=== PATIENT | male | born 1935 | race Caucasian/White ===

== ENCOUNTER 2019-06-03 14:47 | Observation (INO) | payer MEDICARE, OTHER ==
[~2019-06-03] VITALS: Ht 185.4 cm; Wt 81.5 kg
[2019-06-03 15:48] LABS: BASO # 0.1 (0.0-0.2); BASO % 0.3 % (0.0-2.0); EOS # 0.1 (0.0-0.7); EOS % 0.9 % (0-4.0); GRAN # 12.8 (1.4-6.5); GRAN % 83.5 % (42.2-75.2); HEMOGLOBIN 11.1 g/dl (13.5-18.0); LYMPH # 1.3 (1.2-3.4); LYMPH % 8.2 % (20.0-51.0); MEAN CELL VOLUME 91 fl (80.0-100.0); MEAN CORPUSCULAR HEMOGLOBIN 31 pg (27.0-31.0); MEAN CORPUSCULAR HGB CONC 34 g/dl (33.0-37.0); MEAN PLATELET VOLUME 8.3 fl (7.4-10.4); MONO # 0.8 (0.1-0.6); MONO % 5.2 % (1.7-9.3); PLATELET COUNT 435 K/mm3 (130-400); RED BLOOD COUNT 3.61 M/mm3 (4.20-5.60); REDCELL DISTRIBUTION WIDTH-CV 14.2 % (11.5-14.5)
[2019-06-03 15:53] LABS: HEMATOCRIT 32.9 % (42.0-52.0)
[2019-06-03 16:01] LABS: COLLECTION METHOD CLEAN CATCH
[2019-06-03 16:07] LABS: ALBUMIN 3.1 gm/dL (3.5-5.0); BILIRUBIN,TOTAL 0.4 mg/dL (0.0-1.0); CALCIUM 8.4 mg/dL (8.4-10.2); CREATININE, serum 1.56 (0.66-1.25); POTASSIUM 4.2 mmol/L (3.4-5.0); TOTAL PROTEIN 6.8 gm/dL (6.4-8.2)
[2019-06-03 16:10] LABS: PH 6 (5-8); SQUAMOUS EPITHELIAL None Seen /hpf; URINE APPEARANCE Cloudy; URINE BACTERIA Rare /hpf; URINE BILIRUBIN Negative (NEGATIVE); URINE BLOOD 1+ (NEGATIVE); URINE COLOR Yellow; URINE GLUCOSE Negative (NEGATIVE); URINE KETONE Negative (NEGATIVE); URINE LEUKOCYTE ESTERASE 3+ (NEGATIVE); URINE NITRATE Negative (NEGATIVE); URINE PROTEIN(semi-quant) Negative (NEGATIVE); URINE UROBILINOGEN Negative (NEGATIVE)
[2019-06-03 16:23] LABS: C-REACTIVE PROTEIN 18.5 mg/dL (0.0-0.9)
--- NOTE | 2019-06-03 19:54 | NUR ---
Pt. up in bathroom at this time. Pt. is A&OX3, addmission complete. INT to lt. forearm patent. Pt. denies pain at this time. Three way hung noted with davis red urine. CBI irrigating at this time.
[2019-06-03 21:09] VITALS: BP 115/56; PULSE 96; TEMP 98.3
[2019-06-04 01:33] VITALS: BP 123/55; PULSE 75; TEMP 98.3
--- NOTE | 2019-06-04 04:00 | NUR ---
CBI has ran at a moderate rate most of this shift. Currently light pink with occasional small clots. Irrigated x2 this shift for clotting. Tolerated well. Remained NPO-forgot at one point and did have a few sips of water. No food after midnight. WIll monitor.
[2019-06-04 04:48] VITALS: BP 127/62; PULSE 75; TEMP 97.2
[2019-06-04 06:39] LABS: MEAN CELL VOLUME 91 fl (80.0-100.0); MEAN CORPUSCULAR HEMOGLOBIN 31 pg (27.0-31.0); MEAN CORPUSCULAR HGB CONC 34 g/dl (33.0-37.0); PLATELET COUNT 429 K/mm3 (130-400); RED BLOOD COUNT 3.26 M/mm3 (4.20-5.60); REDCELL DISTRIBUTION WIDTH-CV 14.1 % (11.5-14.5)
[2019-06-04 06:47] LABS: ALBUMIN 2.6 gm/dL (3.5-5.0); BILIRUBIN,TOTAL 0.4 mg/dL (0.0-1.0); CALCIUM 7.9 mg/dL (8.4-10.2); CREATININE, serum 1.19 (0.66-1.25); POTASSIUM 4.2 mmol/L (3.4-5.0); TOTAL PROTEIN 5.9 gm/dL (6.4-8.2)
[2019-06-04 06:51] LABS: HEMATOCRIT 29.6 % (42.0-52.0)
--- NOTE | 2019-06-04 07:08 | NUR ---
Report given to WANDA Romero
[2019-06-04 08:19] VITALS: BP 121/57; PULSE 64; TEMP 97.9
[2019-06-04 09:36] LABS: BAND 2 % (0-10); LYMPHOCYTE 10 % (20.0-51.0); NEUTROPHILS 87 % (42.0-75.2)
[2019-06-04 09:39] LABS: HYPOCHROMIA 2+; PLATELET ESTIMATE INCREASED (NORMAL)
--- NOTE | 2019-06-04 10:00 | NUR ---
Patient alert and oriented, answers questions appropriately. See assessment. CBI infusing at slow rate, urine pink, no clots noted. Zepeda catheter patent. No c/o pain or discomfort.
--- NOTE | 2019-06-04 10:54 | NUR ---
Initial visit; patient thanked Digital Advertising Analyst for offering spiritual care and continuing God's blessings.
[2019-06-04 11:57] VITALS: BP 129/63; PULSE 70; TEMP 98.1
--- NOTE | 2019-06-04 15:42 | NUR ---
SW met with patient and his to discuss discharge planning. Patient lives in [place] with his Christiana. Patient does not have a PCP but is interested in obtaining one. Him and his are interested in DOs that are accepting new patients. SW provided them with a list of DOs in [place] and they chose dr salazar malone. HILARIA informed machine records units supervisor to schedule follow up. [facility]. Patient is dc today home with his .
[2019-06-04 17:01] VITALS: BP 123/57; PULSE 83; TEMP 97.6
[2019-06-04] MEDS ORDERED: FLOMAX 0.40.4 MG/CAP PO (17:06)
[2019-06-04] MEDS ORDERED: CIPRO 500MG TA500 MG PO (17:07)
--- NOTE | 2019-06-04 17:50 | NUR ---
Discharge instructions reviewed with patient and spouse, verbalized understanding. Discharged via wheelchair to auto/home with spouse at 1750.
--- NOTE | 2019-06-04 18:03 | NUR ---
Patient discharged with hung catheter in place. Hung education reviewed.
== END 2019-06-04 17:45 | disposition home or self-care (01) ==
LOC: COL.ER 14:47 → SURG 18:18
PROVIDERS: Emergency Medicine; ADMIT Urology
DX: N39.0 Urinary tract infection, site not specified (principal); R33.9 Retention of urine, unspecified; Z87.891 Personal history of nicotine dependence
CPT/HCPCS: 99223; A4216; G0378; J0696; J7030